=== PATIENT | female | born 1985 | race African-American/Black ===

== ENCOUNTER 2017-10-10 06:15 | Inpatient (IN) ==
[2017-10-10] MEDS ORDERED: LACTATED RINGERS 1,000 ML IV PRN (07:14)
[2017-10-10] MEDS ORDERED: AMPICILLIN INJ 2,000 MG in SODIUM CHLORIDE 0.9% 100 ML IV ONE (07:18)
[2017-10-10] MEDS ORDERED: OXYTOCIN/LR 20 UNIT/1,000 ML BAG IV SCH (07:30)
[2017-10-10 07:38] LABS: Basophils % 0.2 % (0.0-0.8); Eosinophils # 0.1 10*3/uL (0.0-0.87); Eosinophils % 0.7 % (0.00-10.9); Hematocrit 42.4 VOL% (35.7-47.0); Immature Granulocytes % 0.5 %; Immature Granulocytes Absolute 0.04 #; Lymphocytes # 1.5 10*3/uL (1.4-4.0); Lymphocytes % 18.1 % (21.3-54.2); Mean Corpuscular HGB Conc 35.4 GM/DL (32-36); Mean Corpuscular Hemoglobin 33 PG (27-34); Mean Corpuscular Volume 92.6 FL (87-102); Mean Platelet Volume 9.8 FL (9.6-12.0); Monocytes # 0.4 10*3/uL (0.11-0.8); Monocytes % 5.1 % (1.7-12.7); Neutrophils % 75.4 % (38.7-73.9); Platelet Count 171 T/CUMM (130-400); Red Blood Count 4.58 MC/CUMM (3.8-5.5); Red Cell Distribution Width 12.9 % (9.3-17.3)
[2017-10-10] MEDS: LACTATED RINGERS 1,000 ML IV SCH (07:48)
[2017-10-10 10:31] LABS: Albumin 2.8 G/DL (3.4-5.0); Bilirubin,Total 0.4 MG/DL (0.2-1.0); Calcium 8.6 MG/DL (8.5-10.1); Osmolality,Calculated 273.7 MOS/KG (273-304); Potassium 3.3 MMOL/L (3.5-5.1); Total Protein 6.4 G/DL (6.4-8.3); Uric Acid 3.6 MG/DL (2.6-6.0)
[2017-10-10] MEDS: AMPICILLIN INJ 1,000 MG in SODIUM CHLORIDE 0.9% 100 ML IV SCH ×4 (11:45→23:35)
[2017-10-10 13:25] LABS: INR 0.9; PT Patient Result 9.8 SECS; Partial Thromboplastin Time 27.8 SECS (0-40)
[2017-10-10] MEDS: ONDANSETRON 4 MG/2 ML VIAL IV PRN (16:22)
[2017-10-10] MEDS: BUTORPHANOL 2 MG/ML VIAL IV PRN (16:23)
[2017-10-11] MEDS: LACTATED RINGERS 1,000 ML IV SCH ×2 (03:11→10:49)
[2017-10-11] MEDS ORDERED: OXYTOCIN/LR 20 UNIT/1,000 ML BAG IV SCH (06:00)
[2017-10-11] MEDS: AMPICILLIN INJ 1,000 MG in SODIUM CHLORIDE 0.9% 100 ML IV SCH ×4 (06:03→18:56)
[2017-10-11] MEDS: BUTORPHANOL 2 MG/ML VIAL IV PRN ×2 (06:47→17:43)
[2017-10-11] MEDS: ONDANSETRON 4 MG/2 ML VIAL IV PRN ×2 (06:54→17:42)
[2017-10-11] MEDS ORDERED: diphenhydrAMINE 50 MG/1 ML VIAL IV PRN ×2 (10:26)
[2017-10-11] MEDS ORDERED: FAMOTIDINE 20 MG/2 ML VIAL IV ONE (10:26)
[2017-10-11] MEDS ORDERED: ePHEDrine 50 MG/ML AMP IV PRN (10:26)
[2017-10-11] MEDS ORDERED: PROMETHAZINE 25 MG/1 ML VIAL IM ONE (10:26)
[2017-10-11] MEDS ORDERED: CITRIC ACID/SODIUM CITRATE 30 ML UDCUP PO ONE (10:26)
[2017-10-11] MEDS ORDERED: hydrOXYzine HCL 25 MG/1 ML VIAL IM PRN (10:26)
[2017-10-11] MEDS: fentaNYL 2 MCG/ROPIV 0.2% EPID 150 ML EPIDURAL SCH ×2 (11:31→18:12)
[2017-10-11 12:27] LABS: Apearance,Urine CLEAR (Clear); Bilirubin,Urine Negative (Negative); Blood, Urine Negative (Negative); Glucose,Urine (UA) Negative (Negative); Ketones,Urine 20 mg/dL (Negative); Nitrite,Urine Negative (Negative); Protein,Urine Negative; RBC,Urine <1 /HPF (0-4); Squamous Epithelial Cell,Urine Occasional /HPF (0-10); Urine Color Yellow (Yellow); Urine Specific Gravity 1.006 (1.001-1.035); Urine Urobilinogen < 2.0 EU/DL (0.2-1.0); WBC,Urine <1 /HPF (0-6)
[2017-10-11] MEDS ORDERED: fentaNYL 100 MCG/2 ML VIAL ONE (16:31)
[2017-10-11] MEDS ORDERED: SUMAtriptan 6 MG/0.5 ML VIAL SUBCUT ONE (21:29)
[2017-10-11] MEDS ORDERED: BUTALBITAL/ACETAMIN/CAFFEINE 50-325-40 MG TABLET PO PRN (21:30)
[2017-10-11] MEDS ORDERED: LIDOCAINE 1% 50 ML VIAL ONE (21:59)
[2017-10-11] MEDS ORDERED: miSOPROStol 200 MCG TABLET ONE (22:00)
[2017-10-11] MEDS ORDERED: CARBOPROST TROMETHAMINE 250 MCG/ML AMP IM ONE (22:00)
[2017-10-11] MEDS ORDERED: MEPERIDINE 50 MG/1 ML VIAL IV PRN (22:04)
[2017-10-12] MEDS ORDERED: oxyCODONE/ACETAMINOPHEN 5-325 MG TABLET PO PRN ×2
[2017-10-12] MEDS ORDERED: BISACODYL 10 MG SUPP RECTAL PRN
[2017-10-12] MEDS ORDERED: BENZOCAINE 20%/MENTHOL 0.5% SPRAY 56 GM CAN TOP PRN
[2017-10-12] MEDS ORDERED: HYDROCORTISONE 2.5% RECTAL CREAM 30 GM TUBE TOP PRN
[2017-10-12] MEDS ORDERED: LANOLIN 50% CREAM 0.3 OZ TUBE TOP PRN
[2017-10-12] MEDS ORDERED: ACETAMINOPHEN 325 MG TABLET PO PRN
[2017-10-12] MEDS: BUTORPHANOL 2 MG/ML VIAL IV PRN (00:06)
[2017-10-12] MEDS ORDERED: OXYTOCIN/LR 20 UNIT/1,000 ML BAG IV PRN (00:12)
[2017-10-12] MEDS ORDERED: WITCH HAZEL PADS 100/JAR TOP PRN (00:23)
[2017-10-12] MEDS: ONDANSETRON 4 MG/2 ML VIAL IV PRN (00:28)
[2017-10-12] MEDS ORDERED: DIPH/TET/ACEL PERT BOOSTER VACCINE 0.5 ML VIAL IM ONE (00:30)
[2017-10-12] MEDS ORDERED: RHO(D) IMMUNE GLOBULIN 300 MCG SYRINGE IM ONE (00:30)
[2017-10-12] MEDS ORDERED: MEASLES/MUMPS/RUBELLA VACCINE 0.5 ML VIAL SUBCUT ONE (00:30)
[2017-10-12 05:24] LABS: Basophils % 0.2 % (0.0-0.8); Hematocrit 40.4 VOL% (35.7-47.0); Hemoglobin 13.9 GM/DL (12.0-16.0); Immature Granulocytes % 1.3 %; Immature Granulocytes Absolute 0.23 #; Lymphocytes # 0.9 10*3/uL (1.4-4.0); Lymphocytes % 5.4 % (21.3-54.2); Mean Corpuscular HGB Conc 34.4 GM/DL (32-36); Mean Corpuscular Hemoglobin 33 PG (27-34); Mean Corpuscular Volume 94.8 FL (87-102); Mean Platelet Volume 10.3 FL (9.6-12.0); Monocytes # 0.7 10*3/uL (0.11-0.8); Monocytes % 4.1 % (1.7-12.7); Neutrophils # 15.3 10*3/uL (1.4-7.4); Platelet Count 187 T/CUMM (130-400); Red Blood Count 4.26 MC/CUMM (3.8-5.5); Red Cell Distribution Width 12.6 % (9.3-17.3); White Blood Count 17.2 T/CUMM (4-12)
[2017-10-12] MEDS: DOCUSATE SODIUM 100 MG CAPSULE PO SCH ×2 (09:13→21:15)
[2017-10-12] MEDS: IBUPROFEN 800 MG TABLET PO PRN ×2 (13:01→21:15)
[2017-10-13] MEDS: IBUPROFEN 800 MG TABLET PO PRN (06:16)
[2017-10-13 08:08] VITALS: BP 121/60
[2017-10-13] MEDS: DOCUSATE SODIUM 100 MG CAPSULE PO SCH (08:42)
== END 2017-10-13 13:50 | disposition home or self-care (01) | DRG 775 ==
LOC: N.LDOUT 06:15 → N.LD 06:23 → N.OB 10-12 02:45
PROVIDERS: ADMIT Obstetrics & Gynecology; ATTEND Obstetrics & Gynecology

== ENCOUNTER 2021-08-26 04:32 | Inpatient (IN) ==
[2021-08-26 06:10] LABS: Bilirubin,Urine Negative (Negative); Blood, Urine Negative (Negative); Glucose,Urine (UA) Negative (Negative); Ketones,Urine Negative (Negative); Mucus,Urine Occasional /LPF (Occasional); Nitrite,Urine Negative (Negative); Protein,Urine Negative; RBC,Urine 2 /HPF (0-4); Squamous Epithelial Cell,Urine Occasional /HPF (0-10); Urine Appearance CLEAR (Clear); Urine Color Yellow (Yellow); Urine Specific Gravity 1.011 (1.001-1.035); Urine Urobilinogen < 2.0 EU/DL (<2.0)
[2021-08-26] MEDS ORDERED: LACTATED RINGERS 1,000 ML IV ONE (06:11)
[2021-08-26] MEDS ORDERED: BUTORPHANOL 2 MG/ML VIAL IV PRN ×2 (06:12→10:37)
[2021-08-26] MEDS ORDERED: ONDANSETRON 4 MG/2 ML VIAL IV PRN ×3 (06:27→22:25)
[2021-08-26] MEDS ORDERED: LACTATED RINGERS 1,000 ML IV SCH (10:00)
[2021-08-26] MEDS ORDERED: BUTORPHANOL 1 MG/ML VIAL IV PRN (10:37)
[2021-08-26] MEDS ORDERED: AMPICILLIN INJ 2,000 MG in SODIUM CHLORIDE 0.9% 100 ML IV ONE (10:40)
[2021-08-26 11:04] LABS: Basophils % 0.3 % (0.0-0.8); Eosinophils % 0.4 % (0.00-10.9); Hematocrit 39.8 VOL% (35.7-47.0); Hemoglobin 13.3 GM/DL (12.0-16.0); Immature Granulocytes % 0.6 %; Immature Granulocytes Absolute 0.05 #; Lymphocytes # 1.3 10*3/uL (1.4-4.0); Lymphocytes % 13.9 % (21.3-54.2); Mean Corpuscular HGB Conc 33.4 GM/DL (32-36); Mean Corpuscular Volume 94.8 FL (87-102); Mean Platelet Volume 9.5 FL (9.6-12.0); Monocytes % 5.8 % (1.7-12.7); Platelet Count 168 T/CUMM (130-400); Red Cell Distribution Width 14.6 % (9.3-17.3)
[2021-08-26] MEDS ORDERED: ePHEDrine 50 MG/ML VIAL IV PRN (11:15)
[2021-08-26] MEDS ORDERED: FAMOTIDINE 20 MG/2 ML VIAL IV ONE (11:15)
[2021-08-26] MEDS ORDERED: CITRIC ACID/SODIUM CITRATE 30 ML UDCUP PO ONE (11:15)
[2021-08-26] MEDS ORDERED: NALOXONE 0.4 MG/ML VIAL IV PRN (11:15)
[2021-08-26] MEDS ORDERED: diphenhydrAMINE 50 MG/1 ML VIAL IV PRN ×2 (11:15)
[2021-08-26] MEDS ORDERED: hydrOXYzine HCL 25 MG/1 ML VIAL IM PRN (11:15)
[2021-08-26] MEDS ORDERED: fentaNYL 2 MCG/ROPIV 0.2% EPID 100 ML EPIDURAL SCH (11:30)
[2021-08-26] MEDS ORDERED: AMPICILLIN INJ 1,000 MG in SODIUM CHLORIDE 0.9% 100 ML IV SCH (14:30)
[2021-08-26 15:34] LABS: Bilirubin,Urine Negative (Negative); Blood, Urine Small mg/dL (Negative); Glucose,Urine (UA) Negative (Negative); Ketones,Urine 5 mg/dL (Negative); Mucus,Urine Occasional /LPF (Occasional); Nitrite,Urine Negative (Negative); Protein,Urine Negative; RBC,Urine 3 /HPF (0-4); Urine Appearance CLEAR (Clear); Urine Color Yellow (Yellow); Urine Specific Gravity 1.011 (1.001-1.035); Urine Urobilinogen < 2.0 EU/DL (<2.0)
[2021-08-26] MEDS ORDERED: OXYTOCIN/LR 20 UNIT/1,000 ML BAG IV ONE ×2 (16:49→22:25)
[2021-08-26 17:32] LABS: Cord Venous Blood HCO3 23.2 MMOL/L; Cord Venous Blood PCO2 39.6 MMHG; Cord Venous Blood PO2 29.2
[2021-08-26] MEDS ORDERED: oxyCODONE/ACETAMINOPHEN 5-325 MG TABLET PO ONE (20:13)
[2021-08-26] MEDS ORDERED: oxyCODONE/ACETAMINOPHEN 5-325 MG TABLET PO PRN (22:25)
[2021-08-26] MEDS ORDERED: BENZOCAINE 20%/MENTHOL 0.5% SPRAY 56 GM CAN TOP PRN (22:25)
[2021-08-26] MEDS ORDERED: MEASLES/MUMPS/RUBELLA VACCINE 0.5 ML VIAL SUBCUT ONE (22:25)
[2021-08-26] MEDS ORDERED: DIPH/TET/ACEL PERT BOOSTER VACCINE 0.5 ML VIAL IM ONE (22:25)
[2021-08-26] MEDS ORDERED: LANOLIN 50% CREAM 0.3 OZ TUBE TOP PRN (22:25)
[2021-08-26] MEDS ORDERED: ACETAMINOPHEN 325 MG TABLET PO PRN (22:25)
[2021-08-26] MEDS ORDERED: BISACODYL 10 MG SUPP RECTAL PRN (22:25)
[2021-08-26] MEDS ORDERED: RHO(D) IMMUNE GLOBULIN 300 MCG SYRINGE IM ONE (22:25)
[2021-08-26] MEDS ORDERED: WITCH HAZEL PADS 100/JAR TOP PRN (22:25)
[2021-08-26] MEDS ORDERED: HYDROCORTISONE 2.5% RECTAL CREAM 30 GM TUBE TOP PRN (22:25)
[2021-08-26] MEDS: IBUPROFEN 800 MG TABLET PO PRN (22:31)
[2021-08-27] MEDS: DOCUSATE SODIUM 100 MG CAPSULE PO SCH ×3 (01:16→21:22)
[2021-08-27] MEDS: IBUPROFEN 800 MG TABLET PO PRN ×2 (06:12→11:59)
[2021-08-27] MEDS: oxyCODONE/ACETAMINOPHEN 5-325 MG TABLET PO PRN ×3 (06:12→21:21)
[2021-08-27 06:52] LABS: Basophils % 0.3 % (0.0-0.8); Eosinophils # 0.1 10*3/uL (0.0-0.87); Eosinophils % 0.8 % (0.00-10.9); Hematocrit 31.9 VOL% (35.7-47.0); Hemoglobin 10.6 GM/DL (12.0-16.0); Immature Granulocytes % 0.5 %; Immature Granulocytes Absolute 0.06 #; Lymphocytes # 1.6 10*3/uL (1.4-4.0); Mean Corpuscular HGB Conc 33.2 GM/DL (32-36); Mean Corpuscular Volume 95.8 FL (87-102); Mean Platelet Volume 10.5 FL (9.6-12.0); Monocytes % 5.2 % (1.7-12.7); Neutrophils % 79.2 % (38.7-73.9); Platelet Count 158 T/CUMM (130-400); Red Blood Count 3.33 MC/CUMM (3.8-5.5); Red Cell Distribution Width 14.7 % (9.3-17.3); White Blood Count 11.4 T/CUMM (4-12)
[2021-08-27] MEDS: MULTIVITAMIN (PRENATAL) TABLET PO SCH (08:12)
[2021-08-27] MEDS ORDERED: OXYMETAZOLINE 0.05% NASAL SPRAY 15 ML BOTTLE BOTH NARES PRN (08:29)
[2021-08-28] MEDS: oxyCODONE/ACETAMINOPHEN 5-325 MG TABLET PO PRN ×2 (05:40→12:02)
[2021-08-28 07:23] VITALS: BP 104/74
[2021-08-28] MEDS: MULTIVITAMIN (PRENATAL) TABLET PO SCH (08:32)
[2021-08-28] MEDS: DOCUSATE SODIUM 100 MG CAPSULE PO SCH (08:32)
[2021-08-28] MEDS: IBUPROFEN 800 MG TABLET PO PRN (12:01)
== END 2021-08-28 13:10 | disposition home or self-care (01) | DRG 807 ==
LOC: N.LDOUT 04:32 → N.LD 04:35 → N.OB 22:05
PROVIDERS: ADMIT Specialist; ATTEND Obstetrics & Gynecology